=== PATIENT | female | born 2000 | race Caucasian/White ===

== ENCOUNTER 2020-11-17 15:28 | Emergency (ER) | payer OTHER, SELFPAY ==
[2020-11-17 15:44] VITALS: BP 130/82; PULSE 79; RESP 15; TEMP 36.2; O2SAT 100
--- NOTE | 2020-11-17 15:46 | ED.GENADULT ---
HPI - General Adult General Chief complaint: Skin/Abscess/Foreign Body Stated complaint: insect bite Time Seen by Provider: 11/17/20 15:32 Source: patient Mode of arrival: ambulatory Limitations: no limitations History of Present Illness HPI narrative: Patient presents for evaluation of raised erythematous lesion to the posterior aspect of left thigh for the last two days. She believes it may be 2/2 insect bite. There is associated pain or pruritus. No drainage from the affected area. No fever, chills, nausea, vomiting. She contemplated taking Benadryl but did not do so. Her mother told her yesterday her symptoms were improving. However today mother said the patient should come in for further evaluation. Patient is not diabetic. Related Data Home Medications Medication Instructions Recorded Confirmed norgestimate-ethinyl estradiol 1 tablet PO DAILY 11/17/20 11/17/20 [Tri-Sprintec (28)] spironolactone 50 mg PO DAILY 11/17/20 11/17/20 Allergies Allergy/AdvReac Type Severity Reaction Status Date / Time Penicillins Allergy Mild Rash Verified 11/17/20 15:46 bee venom protein (honey bee) AdvReac Severe Anaphylaxis Verified 11/17/20 15:46 Review of Systems Review of Systems: Narrative: CONSTITUTIONAL: Denies fever, chills, or sweats. EYES: Denies visual changes, redness, or discharge. ENT: Denies rhinorrhea, congestion, sore throat, or otalgia. CARDIOVASCULAR: Denies chest pain, palpitations, or edema. RESPIRATORY: Denies cough or dyspnea. GASTROINTESTINAL: Denies abdominal pain, nausea, vomiting, or diarrhea. GENITOURINARY: Denies dysuria or hematuria. SKIN: Reports raised, erythematous lesion to posterior aspect of left thigh MUSCULOSKELETAL: Denies back pain, joint pain, or myalgia. NEUROLOGIC: Denies headache, numbness, dizziness, or weakness. PSYCHIATRIC: Denies anxiety or depression. [facility] Past Medical History Medical History (Updated 11/17/20 @ 15:53 by SIDNEY iLnda, PIERO) Acne Surgical History Surgical History No pertinent past surgical history Family History Family History Father Acute myocardial infarction Social History Social History Smoking status: Never smoker Alcohol intake: current Alcohol use details: social Substance use: never Living arrangements: with family Gender identity (if verbalized by the patient): Female Spiritual care concerns: No Exam Narrative: Exam Narrative: GENERAL: Well-appearing, well-nourished, and in no acute distress. HEAD: Normocephalic, atraumatic. EYES: PERRLA and EOMI. ENT: Nares clear, no rhinorrhea or epistaxis. Mucous membranes moist. Oropharynx without tonsillar hypertrophy exudate or other lesions. Bilateral TMs pearly cazares nonbulging NECK: Supple. No adenopathy or masses. No carotid bruits or JVD CHEST: Clear to auscultation. No respiratory distress. No wheezes rales or rhonchi HEART: Regular rate and rhythm. No murmur heard. Normal peripheral pulses. ABDOMEN: Soft, nontender, nondistended, normal active bowel sounds. EXTREMITIES: Normal range of motion. No edema. SKIN: Approximately 1.5 cm slightly raised wheal to posterior aspect of left thigh. Skin is otherwise warm, dry, no rash. NEURO: No focal deficits. Alert and oriented x3. PSYCH: Normal mood and affect. Course Course Emergency Course: This is a 20-year-old female who presents with a raised erythematous lesion to posterior aspect of the left thigh. This appears to be allergic reaction from an insect bite. She has Benadryl available at home. I will prescribe her some triamcinolone in the event that symptoms persist. I told her the present time symptoms do not look like cellulitis or cutaneous abscess. However this very well could be an early infection. I will prescribe some Bactr
== END 2020-11-17 16:00 | disposition home or self-care (01) ==
PROVIDERS: Emergency Provider Nurse Practitioner
DX: S70.362A Insect bite (nonvenomous), left thigh, initial encounter (principal); W57.XXXA Bitten or stung by nonvenomous insect and other nonvenomous arthropods, initial encounter
CPT/HCPCS: 99213; G0463

== ENCOUNTER 2024-10-15 08:22 | Emergency (ER) | payer OTHER, SELFPAY ==
--- NOTE | 2024-10-15 08:26 | ED_ITS ---
HPI - URI/Sore Throat General Chief Complaint: Ear Stated Complaint: Sore Throat,Earache Time Seen by Provider: 10/15/24 08:26 Source: patient Mode of arrival: ambulatory Limitations: no limitations History of Present Illness HPI Narrative: Nicolasa is a 24-year-old female patient presenting to the clinic today with complaints of ear pain and sore throat. She reports sore throat started 2 days ago. Started having ear pain yesterday. Denies any known fever but has been taking Tylenol and ibuprofen for pain. Has muffled voice. Is able to swallow her own saliva. No cough or runny nose. Works as a pediatric nurse. Related Data Home Medications ?Medication ?Instructions ?Recorded ?Confirmed ?Last Taken ?Type norgestimate-ethinyl estradiol 1 tablet PO DAILY 11/17/20 11/17/20 Unknown History 0.18mg/0.215mg/0.25mg-0.035mg(28)tablet (Tri-Sprintec (28)) spironolactone 50 mg tablet 50 mg PO DAILY 11/17/20 11/17/20 Unknown History Allergies Allergy/AdvReac Type Severity Reaction Status Date / Time Penicillins Allergy Mild Rash Verified 10/15/24 08:26 bee venom protein (honey bee) AdvReac Severe Anaphylaxis Verified 10/15/24 08:26 Review of Systems Review of Systems: Pertinent positives per HPI. Patient denies any fever, chills, rash, headache, visual changes, dizziness, cough, shortness of breath, chest pain, palpitations, nausea, vomiting, diarrhea, constipation, abdominal pain, or any urinary issues. PMFSH Past Medical History Medical History Acne Surgical History Surgical History No pertinent past surgical history Family History Family History Father Acute myocardial infarction Social History Social History Smoking status: Never smoker Alcohol intake: current Alcohol use details: social Substance use: never Living arrangements: with family Gender identity (if verbalized by the patient): Female Spiritual care concerns: No Comments At the time of my signature, I reviewed and agree with the nursing past medical, surgical, social, and family history. There is no relevant family history pertinent to the patient complaint. Exam Narrative: General: Well-developed, well nourished, in no apparent distress Head: Normocephalic, atraumatic Eyes: Pupils equally round and reactive to light bilaterally, EOM intact, sclera and conjunctive clear, no discharge, lids normal Ears: TMs intact and clear, ear canals clear, no drainage, grossly hearing normal. Nose: Nares patent, no discharge, no inflammation, no sinus tenderness. Mouth: Oral pharynx red with bilateral tonsillar enlargement with exudate without lesions or masses, good dentition, MMM. + muffled voice, + trismus, even rise and fall of uvula-midline Neck: Supple, trachea midline, enlargement of anterior cervical nodes, no thyroid masses or goiter palpable. Cardio: Regular rate and rhythm, s1 and s2 normal, no murmur appreciated. Resp: Clear to auscultation bilaterally, no rhonchi, rales, wheezing or rubs Course Course Emergency Course: Portions of this record may have been created with voice recognition software. Level of Care: Express Care Visit Vital Signs Vital signs: Vital Signs Temperature 37.4 C 10/15/24 08:35 Pulse Rate 101 H 10/15/24 08:35 Respiratory Rate 20 10/15/24 08:35 Blood Pressure 133/70 10/15/24 08:35 Pulse Oximetry 100 10/15/24 08:35 Oxygen Delivery Room Air 10/15/24 08:35 Temperature 37.4 C 10/15/24 08:35 Pulse Rate 101 H 10/15/24 08:35 Respiratory Rate 20 10/15/24 08:35 Blood Pressure 133/70 10/15/24 08:35 Pulse Oximetry 100 10/15/24 08:35 Oxygen Delivery Room Air 10/15/24 08:35 Vital signs reviewed MDM - URI/Sore Throat MDM Narrative Medical decision making narrative: At the time of visit patient is resting comfortably on the exam table. Patient appears to be nontoxic. Labs: Strep test was positive in the clinic today. Plan: Patient has strep pharyngitis. Prescription for cefdinir was sent to the pharmacy. Patient has allergies to penicillin but has taken cephalosporins in the past without reaction. Work note was given. Supportive measures were discussed with the patient and they voiced understanding discharge instructions and agrees to treatment plan. Return precautions reviewed Differential Diagnosis Differential diagnosis: Likely upper respiratory infection, otitis media, sinusitis, viral infection, bronchitis, influenza, pharyngitis and other (COVID) Discharge Plan Discharge Clinical Impression: Acute streptococcal pharyngitis Patient Disposition: Home Condition: Stable Instructions: Antibiotic Form, Strep Throat (ED) Additional Instructions: Take prescription medications only as prescribed--cefdinir Change your toothbrush in 24 hours after initiation of the antibiotics Increase fluids and stay well hydrated Tylenol/motrin for pain/fever Flonase and OTC antihistamines as directed Vicks vapor rub to open sinuses Sinus rinses for congestion Cepacol spray, cough drops, throat lozenges, warm tea with honey/lemon, gargle salt water to soothe throat BRAT diet for diarrhea Clear liquids x 24 hours then advance as tolerated for nausea/vomiting Go to the ED if you develop a worsening in your condition- high fever not controlled by Tylenol or Motrin, dehydration, weakness, lethargy, shortness of breath, or chest pain. Follow up with your PCP in 3-5 days if symptoms persist. Patient Language: Tamazight Prescriptions: New cefdinir 300 mg capsule 300 mg PO Q12H 10 Days Qty: 20 0RF No Action norgestimate-ethinyl estradiol [Tri-Sprintec (28)] 0.18/0.215/0.25 mg-35 mcg (28) tablet 1 tablet PO DAILY spironolactone 50 mg tablet 50 mg PO DAILY sulfamethoxazole-trimethoprim [Bactrim DS] 800-160 mg tablet 1 tablet PO Q12H Qty: 14 0RF cephalexin 500 mg capsule 500 mg PO Q8H Qty: 28 0RF triamcinolone acetonide 0.1 % cream 1 applic topical TID Qty: 80 0RF Follow-up/Referrals: UNKNOWN,DOCTOR [Non-Staff] - Stand Alone Forms: Work/School Release IP Time of Disposition: 08:47 Quality NIHSS Nursing Documentation ED NIHSS nursing documentation: reviewed/agree
[2024-10-15 08:35] VITALS: BP 133/70; PULSE 101; RESP 20; TEMP 37.4; O2SAT 100
[2024-10-15 08:51] LABS: EDSTREPNEGPOS1 Positive (Negative)
== END 2024-10-15 08:52 | disposition home or self-care (01) ==
PROVIDERS: Emergency Provider Nurse Practitioner Family
DX: J02.0 Streptococcal pharyngitis (principal)
CPT/HCPCS: 87880; 99213; G0463